=== PATIENT | female | born 2000 | race Caucasian/White ===

== ENCOUNTER 2023-09-26 14:31 | Emergency (ER) | payer BC, OTHER ==
[~2023-09-26] VITALS: Ht 154.9 cm; Wt 127.0 kg
[~2023-09-26 14:31] MED LIST: AMOXIL250 MG/5 M PO; MOTRIN100 MG/5 M PO; OTIC CARE 1%-0.10 ML OT
[2023-09-26] MEDS ORDERED: LEVOTHYROXINE50 MCG PO (14:42)
[2023-09-26] MEDS ORDERED: AMOX-CLAV 875-1 EACH PO ×2 (14:42→14:55)
[2023-09-26] MEDS ORDERED: CLINDAMYCIN HC300 MG PO (14:55)
== END 2023-09-26 14:54 | disposition home or self-care (01) ==
LOC: ED 14:31
DX: S61.254A Open bite of right ring finger without damage to nail, initial encounter (principal); L53.9 Erythematous condition, unspecified; Z79.899 Other long term (current) drug therapy; Z79.2 Long term (current) use of antibiotics; W55.01XA Bitten by cat, initial encounter; Y93.89 Activity, other specified; Y92.89 Other specified places as the place of occurrence of the external cause; Y99.8 Other external cause status

== ENCOUNTER 2025-01-05 08:21 | Emergency (ER) | payer BC ==
[~2025-01-05] VITALS: Ht 154.9 cm; Wt 127.0 kg
[~2025-01-05 08:21] MED LIST changes: +AMOX-CLAV 875-1 EACH PO; +CLINDAMYCIN HC300 MG PO; +LEVOTHYROXINE50 MCG PO
[2025-01-05] MEDS ORDERED: XYOSTED100 MG/0.5 SQ (08:28)
[2025-01-05] MEDS ORDERED: SODIUM CHLORIDE 0.9% 1,000 ML IV ONE (08:35)
[2025-01-05] MEDS ORDERED: FAMOTIDINE 50 ML IV ONE (08:35)
[2025-01-05] MEDS ORDERED: diphenhydrAMINE hydrochloride 50 MG/ML VIAL IV ONE (08:35)
[2025-01-05] MEDS ORDERED: Metoclopramide Hydrochloride 10 MG/2 ML VIAL IV ONE (08:35)
[2025-01-05 08:46] LABS: BASO % 0.2 % (0.0-1.0); EOS # 0.1 10*3/uL (0.0-0.4); EOS % 0.5 % (1.0-4.0); HEMATOCRIT 50.5 % (37.0-47.0); MEAN CELL VOLUME 90.5 fl (81.0-99.0); MEAN CORPUSCULAR HGB 30.1 pg (27.0-31.0); MEAN CORPUSCULAR HGB CONC 33.3 g/dl (33.0-37.0); MEAN PLATELET VOLUME 10.5 fl (9.6-12.3); MONO # 0.6 10*3/uL (0.1-1.0); MONO % 4.8 % (3.0-9.0); NEUT # 10.5 10*3/uL (2.3-7.9); NEUT % 88.6 % (47.0-73.0); PLATELET COUNT AUTOMATED 252 10*3/uL (130-400); RED BLOOD COUNT 5.58 10*6/uL (4.10-5.10); RED CELL DISTRI WIDTH 13.2 % (0-14.5); WHITE BLOOD COUNT 11.8 10*3/uL (4.8-10.8)
[2025-01-05 09:03] LABS: BUN 10 mg/dl (9-23); CHLORIDE 101 mmol/L (98-107); POTASSIUM 4.1 mmol/L (3.4-5.1)
[2025-01-05] MEDS ORDERED: PEPCID20 MG PO (10:02)
[2025-01-05] MEDS ORDERED: Ondansetron4 MG PO (10:02)
[2025-01-05 10:15] LABS: BILIRUBIN Negative (Negative); BLOOD Negative (Negative); CLARITY Clear (Clear); COLOR Yellow (Yellow); GLUCOSE Negative (Negative); KETONE 1+ (Negative); LEUKO ESTERASE 1+ (Negative); NITRITE Negative (Negative); PH 7.5 (4.5-8.0); SPECIFIC GRAVITY 1.025 (1.001-1.030); UROBILINOGEN 0.2 E.U./dl (0.0-1.0)
[2025-01-05 11:06] LABS: BACTERIA 1+; WBC 16-20 wbc/hpf (0-5)
== END 2025-01-05 10:37 | disposition home or self-care (01) ==
LOC: ED 08:21
PROVIDERS: Emergency Medicine
DX: R11.2 Nausea with vomiting, unspecified (principal); R19.7 Diarrhea, unspecified; Z79.899 Other long term (current) drug therapy